=== PATIENT | female | born 1965 | race Two or more races ===

== ENCOUNTER 2020-06-02 15:57 | Outpatient (CLI) | payer OTHER | END 2020-06-02 16:19 | disposition home or self-care (01) | LOC: RAD 15:57 | PROVIDERS: ATTEND Orthopaedic Surgery Orthopaedic Surgery of the Spine | DX: M43.8X6 Other specified deforming dorsopathies, lumbar region (principal); M41.26 Other idiopathic scoliosis, lumbar region ==